=== PATIENT | female | born 2000 | race Caucasian/White ===

== ENCOUNTER 2021-10-23 13:29 | Emergency (ER) | payer OTHER, SELFPAY ==
--- NOTE | ~2021-10-23 | XR_ITS ---
EXAMINATION: XR ankle RT min 3V DATE: 10/23/2021 13:57 INDICATION: Right ankle pain. Fall. TECHNIQUE: 4 views of right ankle were obtained. COMPARISON: None. FINDINGS: Bone alignment is normal. No fracture. Joint spaces are well maintained. IMPRESSION: 1. Normal right ankle. Reviewed, dictated and finalized at [facility]. IMPRESSION: 1. Normal right ankle.
[2021-10-23 13:31] VITALS: BP 134/70; PULSE 101; RESP 14; TEMP 37.2; O2SAT 100
--- NOTE | 2021-10-23 13:52 | ED.LOWEXIN ---
HPI - Extremity Injury (Lower) General Chief Complaint: Extremity Injury, Lower Stated Complaint: r foot pain/fall Time Seen by Provider: 10/23/21 13:38 Source: patient Mode of arrival: ambulatory Limitations: no limitations History of Present Illness HPI Narrative: This is a 21-year-old female that presents to the emergency department for right ankle injury sustained just prior to arrival. Reports she was walking up the steps. She felt a pop in her ankle and it twisted. She did not hit her head or lose consciousness. Since she has had pain and swelling about the ankle laterally. Denies decreased range of motion or numbness. Related Data Allergies Allergy/AdvReac Type Severity Reaction Status Date / Time No Known Allergies Allergy Unverified 05/09/18 13:12 Review of Systems Review of Systems: CONSTITUTIONAL: Denies fever MUSCULOSKELETAL: Reports joint pain, and myalgia. NEUROLOGIC: Denies numbness All systems reviewed & are unremarkable except as noted in HPI and below PMFSH Past Medical History Medical History (Updated 10/23/21 @ 14:26 by Blossom Carver PA-C) No active medical problems Social History Social History (Updated 10/23/21 @ 13:54 by Blossom Carver PA-C) Smoking status: Never smoker Exam Narrative: GENERAL: Well-appearing, well-nourished, and in no acute distress. HEAD: Normocephalic, atraumatic. EYES: EOMI. EXTREMITIES: Normal range of motion. No obvious deformity. Mild edema about the right lateral malleoli. Normal DP pulse. Normal sensation SKIN: Warm, dry, no rash. NEURO: No focal deficits. Alert and oriented x3. PSYCH: Normal mood and affect Course Vital Signs Vital signs: Vital Signs Temperature 99.0 F 10/23/21 13:31 Pulse Rate 101 H 10/23/21 13:31 Respiratory Rate 14 10/23/21 13:31 Blood Pressure 134/70 10/23/21 13:31 Pulse Oximetry 100 10/23/21 13:31 Oxygen Delivery Room Air 10/23/21 13:31 Temperature 99.0 F 10/23/21 13:31 Pulse Rate 101 H 10/23/21 13:31 Respiratory Rate 14 10/23/21 13:31 Blood Pressure 134/70 10/23/21 13:31 Pulse Oximetry 100 10/23/21 13:31 Oxygen Delivery Room Air 10/23/21 13:31 Procedures Orthopedic Splinting/Casting Injury #1: Splinting/Casting Date: 10/23/21 Side: right Lower Extremity Injury Location: ankle Lower Extremity Immobilizer: David wrap Splint: prefabricated Pre-Formed: other (david wrao) Pre-Procedure Neuro Vascular Exam: normal Post-Procedure Neuro Vascular Exam: normal Other Orthopedic Equipment: crutches MDM - Extremity Injury (Lower) MDM Narrative Medical decision making narrative: Patient presents to the emergency department for right ankle pain after an injury today. Patient is neurovascularly intact. Right ankle x-ray without acute osseous abnormalities. Patient placed in David wrap and given crutches. Instructed on care of ankle sprain. She is to follow-up with primary care doctor. She was given warnings to return to the ER Imaging Data Radiologist's impression: ITS Impressions Ankle X-Ray 10/23/21 14:02 IMPRESSION: 1. Normal right ankle. Critical Care Time Critical Care Time Critical Care Time: No Discharge Plan Discharge Clinical Impression: Ankle sprain and strain Patient Disposition: Home, Self-Care Condition: Stable Instructions: Ankle Sprain (ED) Additional Instructions: Return to the emergency department if you experience fever, redness and swelling of your leg, numbness, or any other symptoms that are concerning to you Wear DAVID wrap and use crutches. No weight on the affected leg until able to bear weight without pain. Ice and elevate extremity. Pain medication as needed and directed. Follow up primary care doctor for further care. Follow-up/Referrals: Candelario Saunders MD [Physician] - 3 Days PHYSICIAN,SR. DIRECTOR PRODUCT MANAGEMENT [Primary Care Provider] -
== END 2021-10-23 14:54 | disposition home or self-care (01) ==
LOC: ANHED 14:29
PROVIDERS: Emergency Provider Emergency Medicine
DX: S93.401A Sprain of unspecified ligament of right ankle, initial encounter (principal); S96.911A Strain of unspecified muscle and tendon at ankle and foot level, right foot, initial encounter; X50.9XXA Other and unspecified overexertion or strenuous movements or postures, initial encounter
CPT/HCPCS: 73610; 99283

== ENCOUNTER 2022-02-26 16:05 | Emergency (ER) | payer OTHER, SELFPAY ==
[2022-02-26 16:28] VITALS: BP 132/82; PULSE 111; RESP 18; TEMP 37.6; O2SAT 99
[2022-02-26 16:56] LABS: Basophils Percent Auto 0.3 % (0.2-1.2); Eosinophils Absolute Auto 0.1 K/mm3 (0-0.3); Hematocrit 37.2 % (37.0-47.0); Hemoglobin 12.6 g/dL (12.0-15.0); Immature Granulocyte Absolute 0.09 K/mm3 (0.00-0.031); Immature Granulocyte Percent A 0.8 % (0-0.5); Lymphocytes Absolute Auto 1.56 K/mm3 (0.9-3.2); Lymphocytes Percent Auto 13.9 % (18.3-44.2); Mean Corpuscular HGB Conc 33.9 g/dl (32-36); Mean Corpuscular Hemoglobin 28.6 pg (26-34); Mean Corpuscular Volume 84.5 fl (80-100); Mean Platelet Volume 9.6 fl (7.4-10.4); Monocytes Absolute Auto 0.7 K/mm3 (0.1-0.6); Monocytes Percent Auto 6.2 % (2.6-8.5); Neutrophils Absolute Auto 8.8 K/mm3 (1.3-6.7); Neutrophils Percent Auto 77.8 % (45.5-73.1); Platelet Count Result 259 k/mm3 (150-375); Red Cell Distribution Width 12.3 % (11.5-14.5); White Blood Count 11.3 K/mm3 (4.5-10.0)
== END 2022-02-26 21:39 | disposition left against medical advice (07) ==
PROVIDERS: Emergency Provider General Practice
DX: O20.9 Hemorrhage in early pregnancy, unspecified (principal); Z3A.09 9 weeks gestation of pregnancy
CPT/HCPCS: 36415; 84702; 85025; 99199

== ENCOUNTER 2022-02-27 09:13 | Emergency (ER) | payer OTHER, SELFPAY ==
--- NOTE | ~2022-02-27 | US_ITS ---
US OB <= 14 weeks fetus DATE: 02/27/2022 11:07 INDICATION: Left adnexal pain, vaginal bleeding TECHNIQUE: Real-time and color flow imaging of the pelvis COMPARISON: None FINDINGS: The uterus measures approximately 7 cm height, 4.1 cm AP dimension. Central endometrial ech o complex measures up to approximately 12 mm AP dimension. No intrauterine gestational sac is identif ied. Right ovary measures 2.6 x 0.8 x 2.1 cm. Left or measures 3 x 1.6 x 2.5 cm with 1.1 x 1.6 cm corpus luteal cyst. No pelvic mass or abnormal free pelvic fluid collection is detected. IMPRESSION: 1.1 x 1.6 cm left ovarian corpus luteum cyst No intrauterine gestation is identified No pelvic mass or abnormal free pelvic fluid collection Reviewed, dictated and finalized at [facility]. Reviewed, dictated and finalized at [facility]. CUSTODIAN
[2022-02-27 09:14] VITALS: BP 116/64; PULSE 106; RESP 18; TEMP 36.7; O2SAT 99
--- NOTE | 2022-02-27 10:15 | ED.FEMALEGU ---
HPI - Female Genitourinary General Chief complaint: Vaginal Bleeding Stated complaint: bleeding- 9 weeks Time Seen by Provider: 02/27/22 09:22 History of Present Illness HPI Narrative: Patient is a 21-year-old G1, P0 who is approximately 9 weeks gestation with an LMP of 12/29/2021. She began having vaginal bleeding yesterday. She has been passing large clots since yesterday with lower abdominal cramping. Cramping and pain is worse in the left adnexal region. No history of PID or pelvic infection. She reports back in 2019 she had some severe lower abdominal pain and a [place] nurse told her she may have endometriosis but she was uninsured at the time and did not seek further evaluation. Unknown blood type. No syncope. Patient's last oral intake of solid food was at 8 AM when she had an egg sandwich with avocado and tomato. She last had fluid intake at 10 AM when she was drinking some coffee. Patient also reports she was diagnosed with COVID several weeks ago and has had persistent cough. Related Data Allergies Allergy/AdvReac Type Severity Reaction Status Date / Time No Known Allergies Allergy Verified 02/26/22 16:31 Review of Systems Review of Systems: All systems reviewed & are unremarkable except as noted in HPI and below Constitutional: Constitutional: Denies chills and Denies fatigue ENT: Denies nasal congestion and Denies sore throat Cardiovascular: Cardiovascular: Denies chest pain, Denies rapid heart rate and Denies radiating jaw, neck or arm pain Respiratory: Respiratory: Reports cough and Denies dyspnea Gastrointestinal: Gastrointestinal: Reports abdominal pain, Denies nausea and Denies vomiting Genitourinary: Genitourinary: Reports abnormal vaginal bleeding, Denies nocturia, Denies dysuria and Reports pelvic pain Neurologic: Denies syncope PMFSH Past Medical History Medical History (Updated 02/27/22 @ 12:22 by Kang Howard MD) No active medical problems Social History Social History (Updated 10/23/21 @ 13:54 by Blossom Carver PA-C) Smoking status: Never smoker Exam Narrative: GENERAL: Well-appearing, well-nourished, and in no acute distress. HEAD: Normocephalic, atraumatic. EYES: EOMI. CHEST: Clear to auscultation. No respiratory distress. HEART: Regular rate and rhythm. Normal peripheral pulses. ABDOMEN: Soft, nontender, nondistended. Pelvic: Small amount of old dark blood within the vagina with scant blood coming from the cervical os as well as some mucus coming from the cervical os. Os does appear closed. Patient has increased pain and discomfort in left adnexal region with speculum exam. She also has pain and guarding in the left adnexal region on exam without speculum inserted. Normal external genitalia. EXTREMITIES: Normal range of motion. No edema. NEURO: Alert and oriented x3. PSYCH: Normal mood and affect. Course Course Emergency Course: Discussed case with Dr. Ramírez. Likely patient had completed miscarriage. They will trend patient's beta-hCG until it is at 0. Patient has follow-up for Tuesday morning. Discussed return precautions and diagnosis. Patient's blood type is a positive and she does not require any RhoGAM. Vital Signs Vital signs: Vital Signs Temperature 98.1 F 02/27/22 09:14 Pulse Rate 106 H 02/27/22 09:14 Respiratory Rate 18 02/27/22 09:14 Blood Pressure 116/64 02/27/22 09:14 Pulse Oximetry 99 02/27/22 09:14 Oxygen Delivery Room Air 02/27/22 09:14 Temperature 98.1 F 02/27/22 09:14 Pulse Rate 86 02/27/22 12:35 Respiratory Rate 16 02/27/22 12:35 Blood Pressure 126/84 02/27/22 12:35 Pulse Oximetry 99 02/27/22 12:35 Oxygen Delivery Room Air 02/27/22 09:14 MDM - Female Genitourinary Lab Data Result diagrams: 02/27/22 10:29 02/27/22 10:29 Labs: Lab Results 02/27/22 02/27/22 02/27/22 Range/Units 10:29 10:29 10:29 WBC 8.9 (4.5-10.0) K/mm3 RBC 4.20
[2022-02-27] MEDS: MORPHINE SULFATE (*CRX) 4 MG/ML INJ IV PUSH (10:27)
[2022-02-27 10:42] LABS: Basophils Percent Auto 0.3 % (0.2-1.2); Eosinophils Absolute Auto 0.1 K/mm3 (0-0.3); Eosinophils Percent Auto 1.5 % (0-4.4); Hematocrit 35.9 % (37.0-47.0); Hemoglobin 12.1 g/dL (12.0-15.0); Immature Granulocyte Absolute 0.07 K/mm3 (0.00-0.031); Immature Granulocyte Percent A 0.8 % (0-0.5); Lymphocytes Absolute Auto 1.56 K/mm3 (0.9-3.2); Lymphocytes Percent Auto 17.5 % (18.3-44.2); Mean Corpuscular HGB Conc 33.7 g/dl (32-36); Mean Corpuscular Hemoglobin 28.8 pg (26-34); Mean Corpuscular Volume 85.5 fl (80-100); Mean Platelet Volume 9.3 fl (7.4-10.4); Monocytes Absolute Auto 0.9 K/mm3 (0.1-0.6); Monocytes Percent Auto 9.7 % (2.6-8.5); Neutrophils Absolute Auto 6.3 K/mm3 (1.3-6.7); Neutrophils Percent Auto 70.2 % (45.5-73.1); Platelet Count Result 244 k/mm3 (150-375); Red Cell Distribution Width 12.4 % (11.5-14.5); White Blood Count 8.9 K/mm3 (4.5-10.0)
[2022-02-27 10:50] LABS: INR 1.1; Prothrombin Time 13.9 Seconds (11.1-14.7)
[2022-02-27 10:51] LABS: Partial Thromboplastin Time 32.5 SECONDS (22.3-36.8)
[2022-02-27 10:58] LABS: Alanine Aminotransferase 18 U/L (6-35); Albumin Level 4.6 g/dL (3.5-5.1); Alkaline Phosphatase 37 U/L (38-126); Anion Gap 11 mmol/L (8-16); Aspartate Amino Transferase 22 U/L (14-36); Bilirubin,Total 0.4 mg/dL (0.2-1.3); Blood Urea Nitrogen 12 mg/dL (7-17); Calcium 9.5 mg/dL (8.4-10.2); Carbon Dioxide 23 mmol/L (22-30); Chloride 106 mmol/L (98-107); Estimated CRCL calculation 136 ml/min; Estimated Glomerular Filt Rate > 60; Glucose 85 mg/dL (65-110); Sodium 140 mmol/L (137-145)
[2022-02-27 12:35] VITALS: BP 126/84; PULSE 86; RESP 16; O2SAT 99
== END 2022-02-27 12:45 | disposition home or self-care (01) ==
PROVIDERS: Emergency Provider Emergency Medicine; PCP Obstetrics & Gynecology
DX: O03.9 Complete or unspecified spontaneous abortion without complication (principal); Z86.16 Personal history of COVID-19; N83.12 Corpus luteum cyst of left ovary
CPT/HCPCS: 36415; 76801; 80053; 84702; 85025; 85461; 85610; 85730; 86850; 86900; 86901; 96374; 99284; J2270